=== PATIENT | female | born 1960 | race Caucasian/White ===

== ENCOUNTER → 2017-02-22 | Outpatient (CLI) | payer BC ==
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
== END | disposition home or self-care (01) ==
LOC: MRI 09:28
PROVIDERS: ATTEND Neurological Surgery
DX: M47.12 Other spondylosis with myelopathy, cervical region (principal); M48.06 Spinal stenosis, lumbar region

== ENCOUNTER 2017-03-04 21:52 | Emergency (ER) | payer BC ==
[2017-03-04] MEDS ORDERED: FLUCONAZOLE 100 MG TAB PO ONE (23:01)
[2017-03-04] MEDS ORDERED: IBUPROFEN 200 MG TAB PO ONE (23:02)
--- NOTE | 2017-03-04 23:21 | ED.PDOC ---
History of Present Illness - General Chief Complaint: Abdominal Pain Time Seen by Provider: 03/04/17 22:03 Source: patient Exam Limitations: no limitations - History of Present Illness Initial Comments: the patient is a 56-year-old female presenting to the emergency room secondary to bladder spasms and urinary frequency for the last 2-3 hours. She has had multiple urinary tract infections in the past year. She has also had several yeast infections. No fevers and no back pain. It is been several months since her last infection. No blood in the urine.she denies vaginal discharge. Timing/Duration: 1-3 hours Severity: moderate Improving Factors: nothing Worsening Factors: nothing Associated Symptoms: denies symptoms Allergies/Adverse Reactions: Allergies Ceftriaxone [From Rocephin] Allergy (Verified 03/04/17 22:09) Ciprofloxacin [From Cipro] Allergy (Verified 03/04/17 22:09) Home Medications: Ambulatory Orders Atorvastatin Calcium [Lipitor] 03/04/17 DULoxetine HCL [Cymbalta] 03/04/17 Estradiol 1 mg PO 03/04/17 Review of Systems - Review of Systems Constitutional: States: no symptoms reported EENTM: States: no symptoms reported Respiratory: States: no symptoms reported Cardiology: States: no symptoms reported Gastrointestinal/Abdominal: States: no symptoms reported Genitourinary: States: dysuria, frequency, pain Musculoskeletal: States: no symptoms reported Skin: States: no symptoms reported Neurological: States: no symptoms reported Endocrine: States: no symptoms reported All other Systems: No Change from Baseline Past Medical History (General) - Patient Medical History Hx Diabetes: No - Vaccination History Hx Tetanus, Diphtheria Vaccination: Yes Hx Influenza Vaccination: Yes Hx Pneumococcal Vaccination: No Immunizations Up to Date: Yes - Social History Hx Tobacco Use: No Hx Alcohol Use: No Hx Substance Use: No Hx Substance Use Treatment: No Hx Depression: No Feels Threatened In Home Enviroment: No Feels Threatened In a Relationship: No Hx Physical Abuse: No Hx Emotional Abuse: No Hx Suspected Abuse: No - Activities of Daily Living Hospice Agency (if applicable):: None - Female History Patient is a Female of Child Bearing Age (10 -59 yrs old): Yes Patient : No Family Medical History - Family History Mother Family History: No Known Living Status: Still Living Physical Exam - Physical Exam General Appearance: Alert, Comfortable, No apparent distress Eye Exam: bilateral normal Ears, Nose, Throat: hearing grossly normal, normal pharynx Neck: full range of motion Respiratory: no respiratory distress, no accessory muscle use Cardiovascular/Chest: normal peripheral pulses, no edema Peripheral Pulses: radial,right: 2+, radial,left: 2+ Gastrointestinal/Abdominal: normal bowel sounds, non tender, soft Rectal Exam: deferred Back Exam: normal inspection, no CVA tenderness, no vertebral tenderness Extremity: normal range of motion, non-tender, normal inspection, no pedal edema , normal capillary refill Neurologic: alert, normal mood/affect, oriented x 3 Skin Exam: normal color Comments: Vital Signs - 24 hr 03/04/17 21:52 Temperature 97.4 F L Pulse Rate [ 79 pulse ox] Respiratory 16 Rate Blood Pressure 126/82 [left upper arm ] O2 Sat by Pulse 95 Oximetry Progress - Progress Progress: 03/04/17 23:22 the patient is a 56-year-old female presenting with dysuria, frequency and bladder spasms for the last few hours. Urinalysis is clear. Given her history, the patient will be treated presumptively for yeast infection. If symptoms persist then additional evaluation for bladder spasms including for the potential of interstitial cystitis may need to be undertaken along with a pelvic exam. She needs to keep well-hydrated. Motrin can be used for discomfort as well. ER warnings were given. She should follow-up with her primary care doctor later this week. 03/04/17 23:24 - Results/Orders Results/Orders: Laboratory Tests 03/04/17 03/04/17 21:52 22:03 Urine Color Yellow Urine Appearance Clear Urine pH 5.5 Ur Specific [place] 1.025 Urine Protein Negative Urine Glucose (UA) Negative Urine Ketones Negative Urine Blood Negative Urine Nitrite Negative Urine Bilirubin Negative Urine Urobilinogen 0.2 Ur Leukocyte Esterase Negative Urine RBC 0 Urine WBC 1-3 Ur Epithelial Cells 0-1 Urine Bacteria Rare Urine HCG, Qual Negative Departure - Departure Clinical Impression: Bladder spasm Disposition: Discharge to Home or Self Care Condition: Fair Departure Forms: ED Discharge - Pt. Copy, Patient Portal Self Enrollment Instructions: DI for Abdominal Pain-Adult Diet: regular diet Activity: increase activity as tolerated Referrals: Caio Aranda MD [Primary Care Provider] - 1-5 Days Home Medications: Ambulatory Orders Atorvastatin Calcium [Lipitor] 03/04/17 DULoxetine HCL [Cymbalta] 03/04/17 Estradiol 1 mg PO 03/04/17 Additional Instructions: the patient is a 56-year-old female presenting with dysuria, frequency and bladder spasms for the last few hours. Urinalysis is clear. Given her history, the patient will be treated presumptively for yeast infection. If symptoms persist then additional evaluation for bladder spasms including for the potential of interstitial cystitis may need to be undertaken along with a pelvic exam. She needs to keep well-hydrated. Motrin can be used for discomfort as well. ER warnings were given. She should follow-up with her primary care doctor later this week.
[2017-03-04 23:30] VITALS: O2SAT 98
[2017-03-04 23:33] VITALS: BP 124/66; TEMP 97
== END 2017-03-04 23:31 | disposition home or self-care (01) ==
LOC: ER 21:52
DX: N32.89 Other specified disorders of bladder (principal); R30.0 Dysuria; Z88.1 Allergy status to other antibiotic agents

== ENCOUNTER → 2017-05-28 | Outpatient (CLI) | payer BC | END | disposition home or self-care (01) | LOC: LAB.O 09:07 | PROVIDERS: ATTEND Internal Medicine Infectious Disease | DX: M46.46 Discitis, unspecified, lumbar region (principal) ==

== ENCOUNTER → 2017-06-05 | Outpatient (CLI) | payer BC ==
--- NOTE | 2017-06-06 11:52 | MAM ---
EXAM DESCRIPTION: 3D Screening BILATERAL CLINICAL HISTORY: 56 yearsFemaleSCREENING no complaints. No family history of breast cancer. Postmenopausal. Currently on HRT. COMPARISON: Baseline study at this facility.. No prior reports available. TECHNIQUE: Bilateral CC and MLO projection full-field images, 3-D tomosynthesis digital mammographic technique. Also bilateral synthesized CC/ MLO full-field images. CAD not utilized. FINDINGS: The breast parenchymal density pattern is: Heterogeneously dense breast tissue, which may obscure small masses. No skin thickening or nipple retraction . Right breast axillary Lymph nodes. Bilateral intramammary lymph nodes. No focal, stellate mass or density, focal asymmetry , and no suspicious microcalcifications bilaterally. IMPRESSION: BI-RADS CATEGORY: 2 - BENIGN FINDINGS. FOLLOW UP: Routine digital bilateral screening, one year interval from May 2017. Written communication explaining the IMPRESSION and follow-up, will be mailed to the patient and referring health care provider. According to the [employer], yearly mammograms are recommended starting at age 40 and continuing as long as a woman is in good health. Any breast change noted on a breast self-exam should be reported promptly to the patient's healthcare provider. Breast MRI is recommended for women with an approximately 20-25% or greater lifetime risk of breast cancer, including women with a strong family history of breast or ovarian cancer and women who have been treated for Hodgkin's disease. A negative mammographic report should not delay tissue diagnosis in patients with significant clinical history or physical findings. Extremely dense breast tissue limits the sensitivity of digital mammography. Electronically signed by: Cullen Callaway MD 06/06/2017 11:51 AM CDT
== END ==
LOC: RAD 13:52
PROVIDERS: ATTEND Family Medicine
DX: Z12.31 Encounter for screening mammogram for malignant neoplasm of breast (principal)
CPT/HCPCS: 77063; G0202

== ENCOUNTER → 2017-06-05 | Outpatient (CLI) | payer BC | LOC: GMAJ 14:41 | PROVIDERS: ATTEND Family Medicine | DX: Z00.00 Encounter for general adult medical examination without abnormal findings (principal) ==

== ENCOUNTER 2017-06-10 08:00 | Day surgery (SDC) | payer BC ==
[2017-06-10 07:58] VITALS: BP 97/64; TEMP 97.2; O2SAT 98
[~2017-06-10 08:00] MED LIST: LACTATED RINGERS 1,000 ML ONE
--- NOTE | 2017-06-10 08:51 | OP ---
DATE OF PROCEDURE: 06/10/17 PREOPERATIVE DIAGNOSIS: 1. Colon cancer screen. 2. Personal history of colonic polyps five years ago. POSTOPERATIVE DIAGNOSIS: 1. Diverticulosis of the left colon. 2. No evidence polyps on current examination. PROCEDURE: 1. Colonoscopy. SURGEON: Caio Aranda MD. ANESTHESIA: MAC by Rivas Scott CRNA. ESTIMATED BLOOD LOSS: None. COMPLICATIONS: None apparent. TECHNIQUE: After informed consent was obtained from the patient, the patient was taken to the Endoscopy Suite and put in the left lateral decubitus position. After adequate IV sedation was obtained, a digital rectal exam was performed which revealed decreased sphincter tone and no intraluminal masses. The colonoscope was then passed with good visualization all the way through the colon. The bowel prep was very good. There was a small amount of liquid stool that I easily suctioned clear. The cecum was identified by the presence of ileocecal valve and appendiceal orifice. The scope was then withdrawn slowly over the next 8 and a good look at the entire colonic mucosa was obtained. The patient was found to have extensive moderate sized diverticula all through the sigmoid colon. There were a few scattered through the transverse and descending colon as well. The rectum had a normal appearance. There were no significant hemorrhoids noted. The scope was removed. The patient tolerated the procedure well. The patient was transported to the outpatient area in good condition. It is recommended she maintain a high-fiber diet. Routine colon screen can be resumed at this point. Followup on a p.r.n. basis. #[id number] [facility]ENTERPaola
[2017-06-10] MEDS ORDERED: LIDOCAINE 1% 10 ML VIAL INJ ONE (12:00)
[2017-06-10] MEDS ORDERED: PROPOFOL 200 MG/20 ML VIAL IV ONE (12:00)
[2017-06-12] MEDS ORDERED: SODIUM BICARBONATE SYRINGE 50 MEQ/50 ML SYG IV ONE (08:28)
== END 2017-06-10 08:10 | disposition home or self-care (01) ==
LOC: AMB 08:00
PROVIDERS: ATTEND Family Medicine
DX: Z12.11 Encounter for screening for malignant neoplasm of colon (principal); K57.30 Diverticulosis of large intestine without perforation or abscess without bleeding; K59.00 Constipation, unspecified; E78.5 Hyperlipidemia, unspecified; Z96.642 Presence of left artificial hip joint; I25.10 Atherosclerotic heart disease of native coronary artery without angina pectoris; Z86.010 Personal history of colon polyps; Z88.8 Allergy status to other drugs, medicaments and biological substances; Z79.899 Other long term (current) drug therapy
CPT/HCPCS: 00810; 45378; J3490; J7120

== ENCOUNTER → 2017-07-30 | Outpatient (CLI) | payer BC | END | disposition home or self-care (01) | LOC: GMAJ 14:18 | PROVIDERS: ATTEND Family Medicine | DX: Z01.810 Encounter for preprocedural cardiovascular examination (principal) ==

== ENCOUNTER → 2018-11-13 | Outpatient (CLI) | payer BC | LOC: GMAJS 14:29 | PROVIDERS: ATTEND Physician Assistant | DX: R42 Dizziness and giddiness (principal) ==